=== PATIENT | male | born 1950 | race American Indian/Alaskan Native ===

== ENCOUNTER 2018-07-18 14:10 | Outpatient (CLI) | payer OTHER ==
--- NOTE | 2018-07-18 16:13 | Cat Scan Report ---
PROCEDURE: CT CHEST WO CON TECHNIQUE: Computerized axial tomography of the chest was performed without contrast material. This s tudy is performed without intravenous contrast and the sensitivity for pathology, including neoplasms , adenopathy, abscess, pulmonary embolism and aortic dissection, is reduced. Coronal and sagittal rec onstructed imaging provided. CT DOSE LENGTH PRODUCT: 431.4 mGy-cm. HISTORY: Congenital diaphragmatic hernia. COMPARISONS: None currently available. FINDINGS: Chest: Elevated left hemidiaphragm may be a congenital to large diaphragmatic hernia or weakening of the lef t diaphragmatic muscle. No strangulation of the bowel contents. Adjacent minimal compressive atelecta sis noted. No pneumothorax. No effusion. Minimal right basilar dependent subsegmental atelectasis. No right pneumothorax or effusion. Prominent main pulmonary artery may represent hypertension or pulmonary vascular congestion. No aneurysm. Major branch arteries are within normal limits. Eayu-ee-fppdvnic atherosclerotic disease . Tzak-jq-aizleitb cardiomegaly. No pericardial effusion. Coronary artery disease. There is no axillary adenopathy. There is no hilar or mediastinal mass or adenopathy. Limited images of the thyroid gland are unremarkable. Nondistended esophagus with air-fluid level may represent mild gastroesophageal reflux. No esophageal wall thickening. Bones: No suspicious osseous lesions on this limited examination of the skeleton. Metastatic disease better evaluated with bone scan. IMPRESSION: * Prominent main pulmonary artery may represent hypertension or pulmonary vascular congestion. Hyper tension favored. * Suspected large left diaphragmatic hernia without strangulation. * Cardiomegaly. This document is electronically signed by Herminio Kilpatrick MD., Jul 18 2018 04:11:23 PM ET
--- NOTE | 2018-07-19 07:56 | Fluoroscopy Report ---
[place] CHEST FLUOROSCOPY HISTORY: Disorders of diaphragm. FINDINGS: [employer] 2 view chest x-ray was obtained which demonstrates an elevated left hemidiaphragm by 2 rib levels compared to the right side. There are minor atelectatic changes at the left lung base, otherwise lungs are clear. Heart size is borderline. Normal pulmonary vascularity. Sniff test was performed which demonstrated paradoxical motion of the left hemidiaphragm. There is normal excursion of the right hemidiaphragm. 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 CT chest without contrast report from the same day mentions a suspected large left diaphragmatic hernia without strangulation. I am not entirely convinced diaphragmatic hernia is present. 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 Please correlate with the patient's clinical history.
== END 2018-07-18 14:11 | disposition home or self-care (01) ==
LOC: CT 14:10
PROVIDERS: ATTEND Internal Medicine Pulmonary Disease
DX: C79.51 Secondary malignant neoplasm of bone (principal); I25.10 Atherosclerotic heart disease of native coronary artery without angina pectoris; I11.9 Hypertensive heart disease without heart failure; J44.9 Chronic obstructive pulmonary disease, unspecified
CPT/HCPCS: 71250; 76000

== ENCOUNTER 2020-03-25 07:38 | Day surgery (SDC) | payer OTHER ==
[~2020-03-25 07:38] MED LIST: SODIUM CHLORIDE 0.9% 1000 ML 1,000 ML IV SCH
[2020-03-25] MEDS ORDERED: propofoL 200 MG/20 ML VIAL IV ONE (09:46)
[2020-03-25] MEDS ORDERED: LIDOCAINE MPF (2%) 20 MG/1 ML VIAL 5 ML ONE (09:46)
[2020-03-25] MEDS ORDERED: KETAMINE/STERILE WATER 50 MG/ML SYRINGE ONE (09:53)
--- NOTE | 2020-03-25 10:10 | Short Stay Summary ---
Short Stay Documentation Date of service: 03/25/20 Narrative H&P: Patient had a suspected rectal lesion by his urologist exam. - History H&P: obtained from office - Allergies and Medications Current Medications: Allergies No Known Allergies Allergy (Verified 01/23/13 12:29) Home Medications Medication Instructions Recorded Confirmed Last Taken Type Fluticasone Propionate [Flovent 2 sprays INNOSTRIL DAILY 01/15/13 01/15/13 Unknown History Diskus] Iron,Carb/Vit C/Vit B12/Folic 01/15/13 01/15/13 Unknown History [Iron 100 Plus Tablet] amLODIPine 10 mg PO DAILY 01/15/13 01/15/13 Unknown History Albuterol *Only Ed* [Proventil 2.5 mg IH Q3HRT PRN #120 nebu 01/23/13 Unknown Rx 0.5% NEBS] Albuterol Mdi (or & Nicu Only) 2 puff IH Q6H 01/23/13 01/23/13 Unknown History [ProAir HFA Inhaler] Benzonatate [Tessalon Perle] 100 mg PO TID 01/23/13 01/23/13 Unknown History Hydrochlorothiazide 25 mg PO DAILY 01/23/13 01/23/13 Unknown History Ipratropium/Albuterol Sulfate 1 ampul IH Q6HRT #100 ampul.neb 01/23/13 Unknown Rx [DUONEB *Not for PRN Use*] Loratadine [Claritin RAPDIS] 10 mg PO QDAY 01/23/13 01/23/13 Unknown History Prednisone [predniSONE 10 mg 10 mg PO BID 01/23/13 01/23/13 Unknown History (6-Day Pack, 21 Tabs)] Active Medications Sodium Chloride (Nacl 0.9% 1000 Ml) 1,000 mls @ 50 mls/hr IV DIRECT TOLU - Brief post op/procedure progress note Date of procedure: 03/25/20 Procedure: see dictation Estimated blood loss: none Pathology: none Condition: stable - Disposition Condition at discharge: Good Disposition: DC-01 TO HOME OR SELFCARE - Discharge Diagnoses (1) Rectal lesion Status: Acute Short Stay Discharge Plan Activity: other (no driving for 24 hours) Weight Bearing Status: Weight Bear as Tolerated Diet: regular Follow up with: JERRY CASTAÑEDA MD [Primary Care Provider] - 7 Days
--- NOTE | 2020-03-25 10:12 | Operative Report ---
Operative Report Operative Report: Date of procedure: 03/25/2020 Preprocedure diagnosis: Abnormal rectal exam by the patient's urologist, suspect ed lesion. Post procedure diagnosis: Normal study. Procedure: Colonoscopy to the cecum Endoscopist: Dr. Garzon Anesthesia: Monitored anesthesia care per anesthesia department Estimated blood loss: 0 Medications: Monitored anesthesia care. See separate report by anesthesia for details. After careful discussion of the nature and purpose of the procedure as well as details of the technique risks benefits and alternatives the patient gave consent. Please see recent history and physical from the office. The patient was placed in the left lateral decubitus position and medicated per anesthesia. A rectal exam was performed sphincter tone was normal there were no masses palpable. The [place] 570 scope was passed transanally and advanced under continuous direct vision without difficulty to the cecum. The colon was well prepared. The cecum was normal. The ascending colon was normal and on forward and retroflexed views. The transverse colon, descending colon, and sigmoid colon were normal. The rectum was normal on forward and retroflexed views. The procedure was well-tolerated overall and the patient was observed in recovery. Conclusions: Normal colonoscopy to the cecum. Plan: Reassurance. Repeat colonoscopy in 10 years, sooner if clinically indicated. Signed electronically: Ed Garzon M.D.
--- NOTE | 2020-03-25 10:43 | Anesthesia Day of Surgery ---
Anesthesia Day of Surgery - Day of Surgery Patient Examined: Yes Patient H&P Reviewed: Yes Patient is NPO: Yes
--- NOTE | 2020-03-25 10:43 | Anesthesia Consultation ---
Anesthesia Consult and Med Hx Date of service: 03/25/20 - Airway Anesthetic Teeth Evaluation: Good ROM Head & Neck: Adequate Mental/Hyoid Distance: Adequate Mallampati Class: Class II Intubation Access Assessment: Probably Good - Pulmonary Exam CTA: Yes (diminished, very little air movement left side) - Cardiac Exam Cardiac Exam: RRR - Pre-Operative Health Status ASA Pre-Surgery Classification: ASA4 Proposed Anesthetic Plan: MAC - Pulmonary Hx Smoking: No Hx Respiratory Symptoms: Yes (chronic TYSON and orthopnea/PND; symptoms at baseline today) COPD: Yes Home Oxygen Therapy: Yes (2L prn during the day and O2 w/ CPAP at night) Hx Sleep Apnea: Yes (compliant with CPAP + O2) - Cardiovascular System Hx Hypertension: Yes Hx Heart Attack/AMI: No (states that he follows with cardiology and has no hx CHF) Hx Percutaneous Transluminal Coronary Angioplasty (PTCA): No Hx Cardia Arrhythmia: No - Central Nervous System CVA: No - Gastrointestinal Hx Ulcer: Yes - Endocrine Hx Renal Disease: Yes (CKD) Hx Liver Disease: No Hx Insulin Dependent Diabetes: No Hx Non-Insulin Dependent Diabetes: No Hx Thyroid Disease: No - Other Systems Hx Obesity: No - Additional Comments Anesthesia Medical History Comments: Late entry; evaluated prior to procedure. No hx anesthetic complications. Patient is hearing impaired. Interview and consent obtained with assistance from [employer] commissary agent and family member at bedside.
[2020-03-25 11:04] VITALS: BP 137/73
--- NOTE | 2020-03-25 12:18 | Post Anesthesia Evaluation ---
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
== END 2020-03-25 07:39 | disposition home or self-care (01) ==
LOC: GIO 07:38
PROVIDERS: ATTEND Internal Medicine Gastroenterology
DX: R85.618 Other abnormal cytological findings on specimens from anus (principal); K62.89 Other specified diseases of anus and rectum; J44.9 Chronic obstructive pulmonary disease, unspecified; G47.30 Sleep apnea, unspecified; I12.9 Hypertensive chronic kidney disease with stage 1 through stage 4 chronic kidney disease, or unspecified chronic kidney disease; N18.9 Chronic kidney disease, unspecified; M19.90 Unspecified osteoarthritis, unspecified site; F41.9 Anxiety disorder, unspecified; Z98.890 Other specified postprocedural states; Z79.899 Other long term (current) drug therapy
CPT/HCPCS: 45378; J2704; J3490; J7030

== ENCOUNTER → 2021-09-17 | Outpatient (CLI) | payer OTHER | END | disposition home or self-care (01) | LOC: SLR 11:00 | PROVIDERS: ATTEND Internal Medicine Critical Care Medicine | DX: G47.33 Obstructive sleep apnea (adult) (pediatric) (principal) | CPT/HCPCS: 95811 ==